=== PATIENT | female | born 1950 ===

== ENCOUNTER 2018-03-19 06:19 | Day surgery (SDC) | payer MEDICARE ==
[2018-03-19] MEDS ORDERED: Propofol 10 mg/ml Inj (20 ML) ONE ×2 (08:31→08:58)
[2018-03-19] MEDS ORDERED: Lidocaine Hydrochloride 5 ML INJ ONE (08:33)
[2018-03-19] MEDS ORDERED: ePHEDrine 50 mg/ml Inj ONE (08:33)
--- NOTE | 2018-03-19 08:47 | CP.SDSHP ---
Same Day Surgery H & P - History Proposed Procedure: screening colonoscopy Pre-Op Diagnosis: screening for colon neoplasia - Previous Medical/Surgical History Cardiac: Hypertension, Other (hyperlipidemia) Previous Surgical History: cholecystectomy. T and A - Allergies Allergies: Allergies aspirin Allergy (Verified 03/19/18 06:37) RASH Penicillins Allergy (Verified 03/19/18 06:37) RASH - Physical Exam Vital Signs: Vital Signs 03/19/18 06:49 Temperature 97 F L Pulse Rate 66 Respiratory 19 Rate Blood Pressure 139/57 L O2 Sat by Pulse 97 Oximetry Mental Status: Alert & Oriented x3 Neuro: WNL Heart: WNL Lungs: WNL GI: WNL - Impression Impression: screening for colon neoplasia (last exam 12 years ago) - Date & Time Date: 03/19/18 Time: 08:46 Short Stay Discharge - Short Stay Discharge Admitting Diagnosis/Reason for Visit: ENCOUNTER FOR SCREENING Disposition: HOME/ ROUTINE
[2018-03-19] MEDS: Lactated Ringer's 1,000 ML IV ONE ×2 (08:51→09:08)
[2018-03-19] MEDS ORDERED: Lactated Ringer's 1,000 ML IV ONE (08:51)
[2018-03-19 09:31] VITALS: TEMP 97.8
[2018-03-19 10:19] VITALS: BP 118/51; PULSE 54; RESP 16; O2SAT 99
== END 2018-03-19 10:14 | disposition home or self-care (01) ==
LOC: C.ENDO 06:19
PROVIDERS: ATTEND Internal Medicine Gastroenterology
DX: D12.2 Benign neoplasm of ascending colon (principal); K64.8 Other hemorrhoids; K57.90 Diverticulosis of intestine, part unspecified, without perforation or abscess without bleeding
CPT/HCPCS: 45380; 88305; J2704

== ENCOUNTER 2019-02-24 08:41 | Outpatient (CLI) | payer MEDICARE | END 2019-02-24 08:42 | disposition home or self-care (01) | LOC: C.MAMMO 08:42 | DX: Z12.31 Encounter for screening mammogram for malignant neoplasm of breast (principal) ==